=== PATIENT | female | born 1995 | race American Indian/Alaskan Native ===

== ENCOUNTER 2021-03-06 12:42 | Outpatient (CLI) | payer OTHER ==
[2021-03-06 14:17] LABS: Hematocrit 28.9 % (30.3-42.9); Hemoglobin 9.7 gm/dl (10.1-14.3); Mean Corpuscular HGB Conc 33 % (30-34); Mean Corpuscular Volume 75 fl (79-97); Platelet Count 236 K/mm3 (140-440); Red Blood Count 3.88 M/mm3 (3.65-5.03); Red Cell Distribution Width 14.4 % (13.2-15.2)
[2021-03-06 14:32] LABS: Alanine Aminotransferase 8 units/L (7-56)
[2021-03-06 14:38] LABS: Bacteria,Urine 1+ /HPF (Negative); Bilirubin,Urine NEG (Negative); Blood,Urine NEG (Negative); Color,Urine Yellow (Yellow); Protein,Urine <15 mg/dL mg/dL (Negative); Urobilinogen,Urine < 2.0 mg/dL (<2.0)
[2021-03-06 15:13] VITALS: BP 134/76
== END 2021-03-06 15:54 | disposition home or self-care (01) ==
LOC: TRG 12:42 → APU 12:44 → TRG 15:54
PROVIDERS: ATTEND Obstetrics & Gynecology
DX: Z34.93 Encounter for supervision of normal pregnancy, unspecified, third trimester (principal); Z3A.35 35 weeks gestation of pregnancy
CPT/HCPCS: 36415; 59025; 81001; 82565; 83615; 84450; 84460; 84550; 85027

== ENCOUNTER 2021-04-02 15:07 | Inpatient (IN) | payer OTHER ==
[2021-04-02] MEDS ORDERED: OXYTOCIN DRIP 30 UNITS/500 ML BAG IV SCH ×2 (16:00→16:30)
[2021-04-02] MEDS: hydrALAZINE 20 MG/1 ML INJ IV PRN ×2 (16:06→17:25)
[2021-04-02] MEDS: LACTATED RINGERS 1,000 ML IV SCH (16:12)
[2021-04-02 16:14] LABS: Hematocrit 31.7 % (30.3-42.9); Hemoglobin 10.3 gm/dl (10.1-14.3); Mean Corpuscular HGB Conc 33 % (30-34); Mean Corpuscular Volume 75 fl (79-97); Platelet Count 218 K/mm3 (140-440); Red Blood Count 4.22 M/mm3 (3.65-5.03)
[2021-04-02] MEDS ORDERED: MINERAL OIL 30 ML ORAL LIQD PO PRN (16:30)
[2021-04-02] MEDS ORDERED: MAGNESIUM SULFATE 40GM/1000ML 40 GM/1,000 ML BAG IV SCH (16:30)
[2021-04-02] MEDS ORDERED: ePHEDrine SULFATE 50 MG/1 ML INJ IV PRN (16:30)
[2021-04-02] MEDS ORDERED: BUTORPHANOL 2 MG/1 ML INJ IV PRN (16:30)
[2021-04-02] MEDS ORDERED: LOPERAMIDE 2 MG CAP PO PRN (16:30)
[2021-04-02] MEDS ORDERED: OXYTOCIN 10 UNIT/1 ML INJ IM PRN (16:30)
[2021-04-02] MEDS ORDERED: LIDOCAINE (2%) 20 MG/1 ML VIAL 20 ML MDV INFILTRATI ONE (16:30)
[2021-04-02] MEDS ORDERED: miSOPROStol 200 MCG TAB PR PRN (16:30)
[2021-04-02] MEDS ORDERED: TERBUTALINE 1 MG/1 ML INJ SUB-Q PRN (16:30)
[2021-04-02] MEDS ORDERED: METHYLERGONOVINE MALEATE 0.2 MG/ML VIAL IM PRN (16:30)
[2021-04-02] MEDS ORDERED: MAGNESIUM SULFATE 4 GM/100 ML BAG IV ONE (16:30)
[2021-04-02] MEDS ORDERED: CARBOPROST TROMETHAMINE 250 MCG/1 ML INJ IM PRN (16:30)
[2021-04-02 16:33] LABS: Alanine Aminotransferase 8 units/L (7-56); Uric Acid 3.8 mg/dL (3.5-7.6)
[2021-04-02] MEDS ORDERED: DINOPROSTONE 10 MG VAG SUPP VG SCH (17:00)
[2021-04-03] MEDS: LACTATED RINGERS 1,000 ML IV SCH ×2 (05:33→19:53)
[2021-04-03] MEDS ORDERED: ONDANSETRON 4 MG/2 ML INJ ONE ×2 (09:53)
[2021-04-03] MEDS ORDERED: ceFAZolin/Water 2 GM/20 ML 2 GM/20 ML SYRINGE IV ONE (09:53)
[2021-04-03] MEDS ORDERED: dexAMETHasone 20 MG/5 ML VIAL ONE (09:53)
[2021-04-03] MEDS ORDERED: KETOROLAC 30 MG/1 ML INJ ONE (09:53)
[2021-04-03] MEDS ORDERED: METOCLOPRAMIDE 10 MG/2 ML INJ ONE (09:53)
[2021-04-03] MEDS ORDERED: BICITRA ORAL LIQD 30ML ONE (09:53)
[2021-04-03] MEDS ORDERED: FAMOTIDINE 20 MG/2 ML INJ IV ONE ×2 (09:53→09:54)
[2021-04-03] MEDS ORDERED: BUPIVACAINE/PF (0.5%) 5 MG/1 ML 30 ML VIAL INFILTRATI ONE (09:53)
[2021-04-03] MEDS ORDERED: METOCLOPRAMIDE 10 MG/2 ML INJ IV ONE (09:54)
[2021-04-03] MEDS ORDERED: BICITRA ORAL LIQD 30ML PO ONE (09:54)
--- NOTE | 2021-04-03 09:57 | History and Physical Report ---
History of Present Illness Date of examination: 04/03/21 Date of admission: 04/02/21 15:07 Chief complaint: Preeclampsia with severe features, prior x1 History of present illness: 26-year-old G2, P1 at 37 weeks 5 days (DELBERT 04/19/21) complicated by prior C-s ection x1, history of irregular heart rate, at least gestational hypertension presenting with elevated blood pressures found to have severe preeclampsia by blood pressure initially plan for induction of labor however after continued discussion for repeat . Magnesium for seizure proph ylaxis. chart reviewed B+, antibody negative Hemoglobin and hematocrit 11.3 and 35.3 Next Pap smear negative Rubella immune, RPR nonreactive, urine culture negative, hepatitis B surface antigen negative HIV negative Hemoglobin electrophoresis AA Gonorrhea and Chlamydia negative Genetic screening negative 1 hour GTT 118 GBS neg Past History Past Medical History: no pertinent history Past Surgical History: section (x1) Family/Genetic History: sickle cell/trait, mental retardation - Obstetrical History Expected Date of Delivery: 04/19/21 Actual Gestation: 37 Week(s) 5 Day(s) : 2 Para: 1 Hx # Term Pregnancies: 1 Number of Living Children: 1 Medications and Allergies Allergies Allergy/AdvReac Type Severity Reaction Status Date / Time No Known Allergies Allergy Verified 04/02/21 15:32 Home Medications Medication Instructions Recorded Confirmed Last Taken Type No.137/Iron/Folic Acd 1 each PO DAILY 04/02/21 04/02/21 04/02/21 History [[facility] Vitamins Tablet] Active Meds: Active Medications Butorphanol Tartrate (Butorphanol 2 Mg/1 Ml Inj) 2 mg IV Q2H PRN PRN Reason: Pain , Severe (7-10) Carboprost Tromethamine (Carboprost Tromethamine 250 Mcg/1 Ml Inj) 250 mcg IM ONCE PRN PRN Reason: Uterine Bleeding Citric Acid/Sodium Citrate (Bicitra Oral Liqd 30ml) 30 ml PO ONCE ONE Stop: 04/03/21 09:55 Dinoprostone (Dinoprostone 10 Mg Vag Supp) 10 mg VG ONCE DEVANTE Stop: 04/03/21 11:00 Last Admin: 04/02/21 17:15 Dose: 10 mg Documented by: Ephedrine Sulfate (Ephedrine Sulfate 50 Mg/1 Ml Inj) 10 mg IV Q2M PRN PRN Reason: Hypotension Famotidine (Famotidine 20 Mg/2 Ml Inj) 20 mg IV ONCE ONE Stop: 04/03/21 09:55 Hydralazine HCl (Hydralazine 20 Mg/1 Ml Inj) 10 mg IV Q20MIN PRN PRN Reason: Hypertension Last Admin: 04/02/21 17:25 Dose: 10 mg Documented by: Oxytocin/Sodium Chloride (Pitocin/Ns 30 Unit/500ml) 30 units in 500 mls @ 2 mls/hr IV TITR DEVANTE; Protocol Lactated Ringer's (Lactated Ringers) 1,000 mls @ 125 mls/hr IV DIRECT DEVANTE Last Admin: 04/03/21 05:33 Dose: 75 mls/hr Documented by: Oxytocin/Sodium Chloride (Pitocin/Ns 30 Unit/500ml) 30 units in 500 mls @ 40 mls/hr IV TITR DEVANTE; Protocol Magnesium Sulfate (Magnesium Sulfate 40gm/1000ml) 40 gm in 1,000 mls @ 50 mls/hr IV DIRECT DEVANTE Last Admin: 04/02/21 16:45 Dose: 2 gm/hr, 50 mls/hr Documented by: Lactated Ringer's (Lactated Ringers) 1,000 mls @ 2,250 mls/hr IV PREOP DEVANTE Stop: 04/04/21 10:27 Oxytocin/Sodium Chloride (Pitocin/Ns 30 Unit/500ml) 30 units in 500 mls @ 0 mls/hr IV TITR DEVANTE; Protocol Cefazolin Sodium (Ancef/Sterile Water 2 Gm/20 Ml) 2 gm in 20 mls @ 80 mls/hr IV PREOP NR; Protocol Stop: 04/03/21 10:01 Labetalol HCl (Labetalol 200 Mg Tab) 200 mg PO BID DEVANTE Last Admin: 04/02/21 22:43 Dose: 200 mg Documented by: Loperamide HCl (Loperamide 2 Mg Cap) 2 mg PO ONCE PRN PRN Reason: give with Hemabate Methylergonovine Maleate (Methylergonovine Maleate 0.2 Mg/Ml Vial) 0.2 mg IM ONCE PRN PRN Reason: Uterine Bleeding Metoclopramide HCl (Metoclopramide 10 Mg/2 Ml Inj) 10 mg IV ONCE ONE Stop: 04/03/21 09:55 Mineral Oil (Mineral Oil 30 Ml Oral Liqd) 30 ml PO QHS PRN PRN Reason: Constipation Misoprostol (Misoprostol 200 Mcg Tab) 800 mcg DC ONCE PRN PRN Reason: Uterine Bleeding Oxytocin (Oxytocin 10 Unit/1 Ml Inj) 10 unit IM ONCE PRN PRN Reason: Uterine Bleeding Terbutaline Sulfate (Terbutaline 1 Mg/1 Ml Inj) 0.25 mg SUB-Q ONCE PRN PRN Reason: Hyperstimulation/Hypertonicity Review of Systems All systems: negative (expect HPI) - Vital Signs Vital signs: Vital Signs Pulse BP 75 171/102 04/02/21 15:30 04/02/21 15:30 Temp Pulse Resp BP Pulse Ox 97.8 F 87 17 144/91 99 04/03/21 00:16 04/03/21 09:41 04/03/21 00:16 04/03/21 09:38 04/03/21 09:41 - Physical Exam Abdomen: Positive: normal appearance, normal bowel sounds Genitourinary (Female): Positive: normal external genitalia Uterus: Positive: normal size - Obstetrical FHR: category 1 Uterine Contraction Monitor Mode: External Cervical Dilatation: 3 Uterine Contraction Pattern: Irregular Results Result Diagrams: 04/02/21 15:45 04/02/21 15:45 Abnormal lab results 04/02/21 04/02/21 04/02/21 Range/Units 15:45 15:45 20:56 MCV 75 L (79-97) fl MCH 25 L (28-32) pg Creatinine 0.3 L (0.6-1.2) mg/dL Magnesium 4.00 H (1.7-2.3) mg/dL 04/03/21 Range/Units 05:40 MCV (79-97) fl MCH (28-32) pg Creatinine (0.6-1.2) mg/dL Magnesium 4.70 H (1.7-2.3) mg/dL All other labs normal. Assessment and Plan - Patient Problems (1) H/O: Current Visit: Yes Status: Acute Plan to address problem: To OR for repeat --Consented in the chart --Questions solicited and answered (2) Preeclampsia Current Visit: Yes Status: Acute Plan to address problem: On magnesium for seizure prophylaxis --Continue labetolol 200mg BID, titrate as indicated --IV antihypertensive as needed --Anticipate repeat c/s
[2021-04-03] MEDS ORDERED: ceFAZolin/Water 2 GM/20 ML 2 GM/20 ML SYRINGE IV NR (10:00)
[2021-04-03] MEDS ORDERED: LACTATED RINGERS 1,000 ML IV SCH (10:00)
[2021-04-03] MEDS ORDERED: OXYTOCIN DRIP 30 UNITS/500 ML BAG IV SCH ×2 (10:00→12:00)
--- NOTE | 2021-04-03 10:36 | Anesthesia Day of Surgery ---
Anesthesia Day of Surgery - Day of Surgery Patient Examined: Yes Patient H&P Reviewed: Yes Patient is NPO: Yes Beta Blockers: No Cardiac Clearance: No Pulmonary Clearance: No Yonatan's Test: N/A
--- NOTE | 2021-04-03 10:37 | Anesthesia Consultation ---
Anesthesia Consult and Med Hx Date of service: 04/03/21 - Airway Anesthetic Teeth Evaluation: Good ROM Head & Neck: Adequate Mental/Hyoid Distance: Adequate Mallampati Class: Class II Intubation Access Assessment: Probably Good - Pulmonary Exam CTA: Yes - Cardiac Exam Cardiac Exam: RRR - Pre-Operative Health Status ASA Pre-Surgery Classification: ASA2 Proposed Anesthetic Plan: Spinal Nerve Block: TAP - Pulmonary Hx Smoking: No Hx Asthma: No COPD: No Hx Pneumonia: No Hx Sleep Apnea: No - Cardiovascular System Hx Hypertension: Yes (PIH) Hx Heart Attack/AMI: No Hx Angina: No - Central Nervous System Hx Seizures: No Hx Psychiatric Problems: No - Gastrointestinal Hx Gastroesophageal Reflux Disease: No - Endocrine Hx Renal Disease: No Hx Liver Disease: No Hx Insulin Dependent Diabetes: No Hx Non-Insulin Dependent Diabetes: No Hx Hypothyroidism: No Hx Hyperthyroidism: No - Hematic Hx Anemia: No Hx Sickle Cell Disease: No - Other Systems Hx Alcohol Use: Yes (PRIOR TO ) - Additional Comments Anesthesia Medical History Comments: Previous C/S
--- NOTE | 2021-04-03 10:38 | Progress Note ---
Spinal Anesthesia Block - Spinal Anesthesia Block Start Time: 10:08 Stop Time: 10:20 Performed by:: ALAYNA TAO (Kai ELMORE) Procedure: Spinal anesthesia block is being performed for [C/S]. H&P, labs have been reviewed. Patient's questions and concerns have been answered. Informed consent has been performed. Timeout has was performed. Patient in sitting position on side of bed. Sterile prep and drape was performed. 3 mL 1% li docaine skin wheal at L [3]-L [4]. Needle introducer advanced. 25-gauge spinal needle advanced, [+] CSF [-] blood. [Marcaine 10mg and Precedex 5mcg] Spinal dose was given. All needles removed. Patient tolerated procedure well.
[2021-04-03] MEDS ORDERED: PHENYLEPHRINE 10 MG/1 ML INJ SDV ONE (10:48)
[2021-04-03] MEDS ORDERED: PHENYLEPHRINE/NS 1,000 MCG/10 ML SYRINGE (OR USE) IV ONE ×2 (10:49→11:38)
[2021-04-03] MEDS ORDERED: SODIUM CHLORIDE 0.9% 100 ML ONE (10:49)
[2021-04-03] MEDS ORDERED: ceFAZolin/STERILE WATER 2 GM/20 ML SYRINGE IV ONE (10:50)
[2021-04-03] MEDS ORDERED: ePHEDrine SULFATE 50 MG/1 ML INJ ONE (11:38)
--- NOTE | 2021-04-03 11:51 | Procedure Note ---
OB Delivery Note - Delivery Date of Delivery: 04/03/21 Surgeon: RAMON STONER JR Estimated blood loss: other (284cc) - Section Preop diagnosis: repeat , other (preeclampsia with severe features) Postop diagnosis: same section procedure: section, repeat low transverse Disposition: PACU Complications: none Narrative: Indication: 26-year-old G2, P1 at 37 weeks 5 days ([facility]BERT 04/19/21) complicated by prior x1, history of irregular heart rate, at least gestational hypertension presenting with elevated blood pressures found to have severe preeclampsia by blood pressure initially plan for induction of labor however after continued discussion for repeat . Magnesium for seizure prophylaxis. Findings: Normal uterus, tubes and ovaries. Clear fluid. No nuchal cord. Delivery of female infant at 1101 Weight 2314g Height 16.5 in APGARS 8/9 EBL 284cc IVF 1000cc UOP 50cc Procedure: Patient was taken to the operating room prepped and draped in the usual sterile fashion. Pfannenstiel skin incision was made and carried down to the underlying fascia. Fascia was incised and the incision was distended bilaterally. Rectus fascia was dissected off the rectus muscle superiorly and inferiorly. Peritoneum was identified and entered. Peritoneal incision extended superiorly and inferiorly. The bladder was visualized. The bladder blade was placed. Uterine hysterotomy incision was made and extended bilaterally. The baby was delivered in the typical vertex fashion. Baby was bulb suction at delivery. The cord was cut and clamped and handed off to the team. The placenta was delivered spontaneously. The uterus was exteriorized and cleared of all clots and debris. Uterine incision was closed with a 0 Vicryl in a running locked fashion. Good hemostasis was noted after 2 figure of eight sutures to the uterine incision. Hemoblast was applied to the uterine incisional base to provide hemostasis. The urine was noted to be clear. Uterus, tubes, and ovaries were returned to the abdominal cavity. Bilateral gutters were cleared and the abdomen and pelvis were irrigated. Good hemostasis noted. The rectus muscle was reapproximated with 2-0 Vicryl. Attention was directed towards the rectus fascia which was reapproximated with 0 PDS in a running fashion. The subcutaneous tissue was irrigated and reapproximated with 0 Vicryl in a running fashion. Skin was closed with a 4-0 Vicryl in a subcuticular fashion. The procedure was completed and the patient tolerated the procedure well. All instruments and lap counts were correct x2. - A at 1 minute: 8 at 5 minutes: 9 Gender: Female
[2021-04-03] MEDS ORDERED: WITCH HAZEL/ GLYCERIN PAD TP PRN (12:00)
[2021-04-03] MEDS ORDERED: PROMETHAZINE 25 MG RECT SUPP PR PRN (12:30)
[2021-04-03] MEDS ORDERED: ACETAMINOPHEN 325 MG TAB PO PRN (12:30)
[2021-04-03] MEDS ORDERED: oxyCODONE /ACETAMINOPHEN 5-325MG TAB PO PRN (12:30)
[2021-04-03] MEDS ORDERED: MORPHINE 4 MG/1 ML INJ IV PRN (12:30)
[2021-04-03] MEDS ORDERED: ONDANSETRON 4 MG/2 ML INJ IV PRN (12:30)
[2021-04-03] MEDS ORDERED: NALOXONE 0.4 MG/1 ML INJ IV PRN (12:30)
[2021-04-03] MEDS ORDERED: SIMETHICONE 80 MG CHEW TAB PO PRN (12:30)
[2021-04-03] MEDS ORDERED: LANOLIN/ZINC/DIMETHICONE (LANSINOH) 7 GM TP PRN (12:30)
[2021-04-03] MEDS ORDERED: IBUPROFEN 800 MG TAB PO PRN (12:30)
[2021-04-03] MEDS ORDERED: KETOROLAC 30 MG/1 ML INJ IV SCH (13:00)
[2021-04-03] MEDS ORDERED: HYDROCORTISONE 25 MG RECTAL SUPP PR PRN (13:00)
--- NOTE | 2021-04-03 16:02 | Post Anesthesia Evaluation ---
- Post Anesthesia Evaluation Patient Participated: Yes Airway Patent: Yes Stable Respiratory Function: Yes Nausea/Vomiting: No Temp > 96.8F: Yes Pain Manageable: Yes Adequeate Hydration: Yes Anesthesia Complications: No Block Receding Appropriately: Yes Patient on Ventilator: No
[2021-04-03] MEDS: hydrALAZINE 20 MG/1 ML INJ IV PRN (18:06)
[2021-04-03] MEDS ORDERED: SENNOSIDES 8.6 MG TAB PO PRN (22:00)
[2021-04-03] MEDS ORDERED: MAGNESIUM HYDROXIDE (MOM) ORAL LIQD UDC PO PRN (22:00)
[2021-04-04 01:10] LABS: Hematocrit 29.5 % (30.3-42.9); Hemoglobin 9.7 gm/dl (10.1-14.3)
--- NOTE | 2021-04-04 10:20 | Progress Note ---
Assessment and Plan POD # 1 A: S/P repeat LTCS Preeclampsia Asymptomatic anemia P: Continue monitoring with Mgs04 Mg levels q6h Fe prescribed Increase Labetalol to 300mg BID Transfer to pp 24h post MgS04 if stable Encourage ambulation after MgSo4 d/c'd Advise foods high in Fe Anticipate d/c within 24-48h if stable Subjective - Subjective Date of service: 04/04/21 Principal diagnosis: s/p LTCS Patient reports: appetite normal, voiding normally, pain well controlled, flatus [place]: doing well, bottle feeding Objective - Vital Signs Latest vital signs: Vital Signs Temp Pulse Resp BP Pulse Ox Pulse Ox 04/04/21 10:12 82 100 04/04/21 10:07 76 100 04/04/21 10:02 75 100 04/04/21 09:57 84 99 04/04/21 09:54 73 143/84 04/04/21 09:52 70 99 04/04/21 09:47 77 100 04/04/21 09:42 74 100 04/04/21 09:37 78 100 04/04/21 09:32 81 100 04/04/21 09:27 78 100 04/04/21 09:24 74 164/95 04/04/21 09:22 74 100 04/04/21 09:17 83 99 04/04/21 09:12 76 99 04/04/21 09:07 86 100 04/04/21 09:02 85 100 04/04/21 08:57 72 99 04/04/21 08:54 70 156/91 04/04/21 08:52 79 99 04/04/21 08:47 84 100 04/04/21 08:42 81 100 04/04/21 08:37 85 99 04/04/21 08:32 78 100 04/04/21 08:27 77 99 04/04/21 08:24 76 153/88 04/04/21 08:22 85 99 04/04/21 08:17 79 99 04/04/21 08:12 84 99 04/04/21 08:07 68 157/94 100 04/04/21 08:02 84 100 04/04/21 07:57 73 100 04/04/21 07:54 72 155/89 04/04/21 07:52 72 100 04/04/21 07:47 76 100 04/04/21 07:42 83 99 04/04/21 07:37 76 100 04/04/21 07:32 77 100 04/04/21 07:27 75 100 04/04/21 07:24 71 158/90 04/04/21 07:22 71 100 04/04/21 07:17 72 100 04/04/21 07:12 84 100 04/04/21 07:07 76 100 04/04/21 07:02 83 100 04/04/21 06:57 77 99 04/04/21 06:54 76 154/89 04/04/21 06:52 82 100 04/04/21 06:47 80 100 04/04/21 06:42 81 100 04/04/21 06:37 84 100 04/04/21 06:32 83 100 04/04/21 06:27 78 100 04/04/21 06:24 73 156/92 04/04/21 06:22 84 100 04/04/21 06:17 82 100 04/04/21 06:12 77 100 04/04/21 06:07 79 100 04/04/21 06:02 79 100 04/04/21 05:57 75 98 04/04/21 05:54 77 145/89 04/04/21 05:52 74 99 04/04/21 05:47 74 99 04/04/21 05:42 71 99 04/04/21 05:37 79 99 04/04/21 05:32 74 98 04/04/21 05:27 76 98 04/04/21 05:24 71 140/83 04/04/21 05:22 73 99 04/04/21 05:17 77 99 04/04/21 05:12 76 99 04/04/21 05:07 76 98 04/04/21 05:02 75 99 04/04/21 04:57 72 98 04/04/21 04:54 78 134/83 04/04/21 04:52 74 98 04/04/21 04:47 75 98 04/04/21 04:42 77 98 04/04/21 04:37 73 99 04/04/21 04:32 76 100 04/04/21 04:27 78 99 04/04/21 04:24 75 139/84 04/04/21 04:22 78 100 04/04/21 04:17 75 99 04/04/21 04:12 79 99 04/04/21 04:07 75 100 04/04/21 04:02 77 99 04/04/21 03:57 74 98 04/04/21 03:54 75 138/81 04/04/21 03:52 79 98 04/04/21 03:47 77 98 04/04/21 03:42 74 98 04/04/21 03:37 76 99 04/04/21 03:32 76 98 04/04/21 03:27 77 98 04/04/21 03:24 75 121/74 04/04/21 03:22 77 98 04/04/21 03:17 78 99 04/04/21 03:12 75 99 04/04/21 03:07 75 99 04/04/21 03:02 73 99 04/04/21 02:57 75 99 04/04/21 02:54 71 136/76 04/04/21 02:52 74 99 04/04/21 02:47 75 99 04/04/21 02:42 77 100 04/04/21 02:37 83 100 04/04/21 02:32 85 100 04/04/21 02:27 79 99 04/04/21 02:24 83 159/87 04/04/21 02:22 80 100 04/04/21 02:17 78 100 04/04/21 02:12 83 99 04/04/21 02:07 76 99 04/04/21 02:02 78 99 04/04/21 01:57 79 99 04/04/21 01:54 75 135/80 04/04/21 01:52 81 98 04/04/21 01:47 80 100 04/04/21 01:42 79 99 04/04/21 01:37 79 99 04/04/21 01:32 84 98 04/04/21 01:27 86 100 04/04/21 01:24 80 154/84 04/04/21 01:22 83 99 04/04/21 01:17 90 100 04/04/21 01:12 86 99 04/04/21 01:07 77 99 04/04/21 01:02 86 99 04/04/21 00:57 78 99 04/04/21 00:54 75 144/81 04/04/21 00:52 82 98 04/04/21 00:47 79 98 07/29/21 00:42 76 98 04/04/21 00:37 77 98 04/04/21 00:32 78 98 04/04/21 00:27 75 98 04/04/21 00:24 75 136/80 04/04/21 00:22 77 99 04/04/21 00:17 92 H 99 04/04/21 00:12 77 98 04/04/21 00:07 79 98 04/04/21 00:02 82 98 04/03/21 23:57 75 99 04/03/21 23:54 76 134/76 04/03/21 23:52 78 99 04/03/21 23:47 80 99 04/03/21 23:42 78 99 04/03/21 23:37 95 H 99 04/03/21 23:32 85 100 04/03/21 23:27 83 98 04/03/21 23:24 82 143/83 04/03/21 23:22 88 99 04/03/21 23:17 84 99 04/03/21 23:12 86 99 04/03/21 23:07 82 98 04/03/21 23:02 82 98 04/03/21 22:57 81 99 04/03/21 22:54 78 135/74 04/03/21 22:52 82 98 04/03/21 22:47 83 98 04/03/21 22:44 18 04/03/21 22:42 79 99 04/03/21 22:37 83 99 04/03/21 22:32 83 99 04/03/21 22:27 84 100 04/03/21 22:22 81 100 04/03/21 22:17 82 100 04/03/21 22:14 18 04/03/21 22:12 76 100 04/03/21 22:08 85 143/88 04/03/21 22:07 93 H 99 04/03/21 22:02 80 100 04/03/21 21:57 83 100 04/03/21 21:53 78 149/88 04/03/21 21:52 79 100 04/03/21 21:47 79 100 04/03/21 21:42 83 100 04/03/21 21:38 80 147/83 04/03/21 21:37 82 99 04/03/21 21:32 79 100 04/03/21 21:27 80 100 04/03/21 21:23 71 157/90 04/03/21 21:22 77 99 04/03/21 21:17 81 100 04/03/21 21:12 84 100 04/03/21 21:08 76 157/89 04/03/21 21:07 82 100 04/03/21 21:02 81 100 04/03/21 20:57 78 100 04/03/21 20:54 75 159/89 04/03/21 20:52 85 100 04/03/21 20:47 85 100 04/03/21 20:42 82 100 04/03/21 20:38 79 166/106 04/03/21 20:37 82 100 04/03/21 20:32 83 100 04/03/21 20:27 84 100 04/03/21 20:23 78 18 159/100 04/03/21 20:22 85 100 04/03/21 20:17 80 100 04/03/21 20:12 82 100 04/03/21 20:10 99 04/03/21 20:08 74 168/103 04/03/21 20:07 81 100 04/03/21 20:02 80 100 04/03/21 19:57 77 99 04/03/21 19:56 57 L 73 L 04/03/21 19:53 76 19 164/99 04/03/21 19:38 80 163/98 04/03/21 19:23 81 160/95 04/03/21 19:08 81 157/91 04/03/21 18:54 75 163/94 04/03/21 18:38 88 150/80 04/03/21 18:24 80 155/82 04/03/21 18:09 82 159/87 04/03/21 18:06 70 165/102 04/03/21 17:53 75 165/101 04/03/21 17:38 73 166/104 04/03/21 17:23 66 169/102 04/03/21 17:13 64 170/107 04/03/21 17:08 67 168/105 04/03/21 16:54 81 155/93 04/03/21 16:39 73 147/102 04/03/21 16:23 65 158/101 04/03/21 16:09 73 159/99 04/03/21 15:54 78 142/83 04/03/21 15:38 68 153/99 04/03/21 15:23 72 145/91 04/03/21 15:08 73 139/89 04/03/21 14:53 71 142/87 04/03/21 14:38 67 145/88 04/03/21 14:24 65 142/87 04/03/21 14:08 68 127/59 04/03/21 13:53 71 120/55 04/03/21 13:38 69 121/61 04/03/21 13:24 71 122/64 04/03/21 13:05 98.2 F 73 17 127/76 99 04/03/21 12:50 75 18 132/80 99 04/03/21 12:35 73 16 133/69 98 04/03/21 12:20 72 18 129/81 98 04/03/21 12:15 71 16 123/87 99 04/03/21 12:10 65 19 125/82 100 04/03/21 12:05 66 16 110/58 100 04/03/21 12:03 97.6 F 67 16 109/57 100 Intake and Output 04/03/21 04/04/21 04/04/21 22:59 06:59 14:59 Intake Total 1050 Output Total 1800 500 Balance -750 -500 Intake: IV 1050 Lactated Ringers 1,000 ml 1000 @ 125 mls/hr IV DIRECT DEVANTE Rx#:[id number] MAGNESIUM SULFATE 40GM/ 50 1000ML 40 gm In 1,000 ml @ 2 GM/HR 50 mls/hr IV DIRECT DEVANTE Rx#:[id number] Output: Urine 1800 500 Indwelling Catheter 1800 500 Other: Total, Output Amount 600 500 - Exam Breasts: Present: normal Abdomen: Present: normal appearance, soft, normal bowel sounds Vulva: both: normal Uterus: Present: normal, firm, fundal height below umbilicus Extremities: Present: normal Incision: Present: normal, dry, intact - Labs Labs: Abnormal lab results 04/03/21 04/03/21 04/04/21 Range/Units 09:46 16:44 00:39 Hgb 9.7 L (10.1-14.3) gm/dl Hct 29.5 L (30.3-42.9) % Magnesium 5.20 H 4.90 H (1.7-2.3) mg/dL
[2021-04-04] MEDS: FERROUS SULFATE 325 MG TAB PO SCH ×2 (11:05→22:43)
[2021-04-05] MEDS: FERROUS SULFATE 325 MG TAB PO SCH (10:05)
--- NOTE | 2021-04-05 12:18 | Progress Note ---
Subjective - Subjective Date of service: 04/05/21 Principal diagnosis: s/p LTCS Interval history: POD#2 SP LTCS pt signed out AMA prior to my arrival on . Ellen Short MD Patient reports: appetite normal, voiding normally, pain well controlled, ambulating normally : doing well Objective - Vital Signs Latest vital signs: Vital Signs Temp Pulse Resp BP BP Pulse Ox Pulse Ox 04/05/21 08:38 97.9 F 72 18 154/90 98 04/05/21 08:16 100 04/05/21 05:00 100 04/05/21 02:50 100 04/05/21 00:45 100 04/05/21 00:00 98.4 F 74 18 130/72 100 04/04/21 23:45 99 04/04/21 22:51 18 04/04/21 22:50 99 04/04/21 22:45 98.6 F 81 18 131/76 99 04/04/21 22:43 81 131/76 04/04/21 21:30 99 04/04/21 19:30 99 04/04/21 16:42 97.9 F 75 20 132/75 99 Intake and Output 04/04/21 04/05/21 04/05/21 23:59 07:59 15:59 Intake Total 800 Output Total 625 Balance 175 Intake: Oral 440 Intake, Free Water 360 Output: Urine 625 Void 625 Other: Total, Intake Amount 200 Total, Output Amount 250 # Voids Void 2 1
[2021-04-05 12:36] VITALS: BP 150/90
--- NOTE | 2021-04-18 14:23 | Discharge Summary ---
Providers - Providers Date of Admission: 04/03/21 15:07 Date of discharge: 04/05/21 Attending physician: NNAMDI MABRY MD Primary care physician: RAMON STONER JR, MD Hospitalization Hospital course: Patient left AMA Condition at discharge: Stable Disposition: LEFT AGAINST MEDICAL ADVICE Plan - Discharge Medications Prescriptions: Ibuprofen [Motrin 800 MG tab] 800 mg PO Q6H PRN #30 tablet PRN Reason: Pain, Moderate (4-6) oxyCODONE /ACETAMINOPHEN [Percocet 5/325 mg] 1 tab PO Q6H PRN #30 tablet PRN Reason: Pain, Moderate (4-6) - Provider Discharge Summary Additional instructions: [] Smoking cessation referral if applicable(refer to patient education folder for contact #) [] Refer to [facility]'s [facility] Booklet Call your doctor immediately for: * Fever > 100.5 * Heavy vaginal bleeding ( >1 pad per hour) * Severe persistent headache * Shortness of breath * Reddened, hot, painful area to leg or breast * Drainage or odor from incision. * Keep incision clean and dry at all times and follow doctor's instructions regarding bathing/showering - Follow up plan Follow up: RAMON STONER JR, MD [Primary Care Provider] - 14 Days
== END 2021-04-05 11:15 | disposition left against medical advice (07) | DRG 788 ==
LOC: LD 15:07 → OB 04-04 12:04
PROC: 10D00Z1 Extraction of Products of Conception, Low, Open Approach (ICD-10-PCS; principal; 2021-04-03)
DX: O14.14 Severe pre-eclampsia complicating childbirth (principal); O34.211 Maternal care for low transverse scar from previous cesarean delivery; O13.4 Gestational [pregnancy-induced] hypertension without significant proteinuria, complicating childbirth; Z84.89 Family history of other specified conditions; Z3A.37 37 weeks gestation of pregnancy; Z37.0 Single live birth; Z20.822 Contact with and (suspected) exposure to COVID-19
CPT/HCPCS: 36415; 59200; 82565; 83615; 83735; 84450; 84460; 84550; 85014; 85018; 85027; 86592; 86850; 86900; 86901; 99211; G0378; G0463; J0360; J0690; J1100; J1885; J2270; J2370; J2405; J3475; J3490; J7120; U0003